=== PATIENT | female | born 1965 | race Caucasian/White ===

== ENCOUNTER 2018-03-31 10:36 | Day surgery (SDC) | payer OTHER ==
[2018-03-31] MEDS ORDERED: MEPERIDINE 25 MG INJ IV (12:00)
[2018-03-31] MEDS ORDERED: HYDROmorphONE 1 MG/5 ML IV SYRINGE IV ×2 (12:00)
[2018-03-31] MEDS ORDERED: METOCLOPRAMIDE 10 MG INJ IV (12:00)
[2018-03-31] MEDS ORDERED: LORAZEPAM 2 MG INJ IV (12:00)
[2018-03-31] MEDS ORDERED: DIPHENHYDRAMINE 50 MG INJ IV (12:00)
[2018-03-31] MEDS: BUPIVACAINE 0.5% (SDV) 30 ML INJ (12:21)
[2018-03-31] MEDS: IOHEXOL 300MG/ML 30 ML BTL (12:21)
[2018-03-31] MEDS: METHYLPREDNISOLONE ACET 80 MG/ML 1 ML (12:21)
[2018-03-31] MEDS ORDERED: LIDOCAINE 1% (MDV) 20 ML INJ (12:40)
[2018-03-31] MEDS ORDERED: PROPOFOL 20 ML (12:40)
[2018-03-31] MEDS ORDERED: LIDOCAINE 2% (SDV) 5 ML INJ (13:21)
[2018-03-31] MEDS ORDERED: FENTAnyl 50 MCG/ML VIAL ×2 (13:26→13:34)
[2018-03-31] MEDS ORDERED: MIDAZOLAM 1 MG/ML 2 ML INJ (13:26)
[2018-03-31] MEDS ORDERED: CEFAZOLIN 1 GM INJ (13:29)
== END 2018-03-31 14:50 | disposition home or self-care (01) ==
LOC: SDS 10:36
DX: M16.12 Unilateral primary osteoarthritis, left hip (principal)
CPT/HCPCS: 20610; 73530; 84703; 93005